=== PATIENT | female | born 1975 | race African-American/Black ===

== ENCOUNTER 2021-02-13 15:57 | Emergency (ER) | payer OTHER ==
[~2021-02-13] VITALS: Ht 162.6 cm; Wt 52.2 kg
[2021-02-13] MEDS ORDERED: LIDOCAINE 1% Multi-Dose 20 ML VIAL. INJ ONE (16:30)
[2021-02-13] MEDS ORDERED: CEPH500C PO (16:45)
[2021-02-13] MEDS ORDERED: IBUP-1007 PO (16:45)
--- NOTE | 2021-02-13 16:46 | PHYS DOC ---
General Adult EDM: Chief Complaint: VAGINAL PROBLEM HPI: HPI: Patient is a 45 year old female who presents with a vaginal abscess to the left labia. She states it got swollen and painful this morning. She states that she has had it there before and she had to have a drain but that was at [facility] 1 months ago. She denies fever, body aches, urinary symptoms. She has a history of hypertension. Rates her pain 6 out of 10. (ASH FLORES APRN) Review of Systems: Review of Systems: Constitutional: Denies fever or chills. [] Eyes: Denies change in visual acuity. [] HENT: Denies nasal congestion or sore throat. [] Respiratory: Denies cough or shortness of breath. [] Cardiovascular: Denies chest pain or edema. [] GI: Denies abdominal pain, nausea, vomiting, bloody stools or diarrhea. [] : Denies dysuria. + Vaginal pain [] Musculoskeletal: Denies back pain or joint pain. [] Integument: Denies rash. + Vaginal abscess [] Neurologic: Denies headache, focal weakness or sensory changes. [] Endocrine: Denies polyuria or polydipsia. [] Lymphatic: Denies swollen glands. [] Psychiatric: Denies depression or anxiety. [] (ASH FLORES APRN) Heart Score: C/O Chest Pain: No Risk Factors: Risk Factors: DM, Current or recent (<one month) smoker, HTN, HLP, family history of CAD, obesity. Risk Scores: Score 0 - 3: 2.5% MACE over next 6 weeks - Discharge Home Score 4 - 6: 20.3% MACE over next 6 weeks - Admit for Clinical Observation Score 7 - 10: 72.7% MACE over next 6 weeks - Early Invasive Strategies (ASH FLORES APRN) Current Medications: Current Medications Medications (Trade) Dose Ordered Sig/Angela Start Time Stop Time Status Last Admin Dose Admin Lidocaine HCl (Lidocaine 1% 20ml Vial) 20 ml 1X ONCE 02/13/21 16:30 02/13/21 16:31 UNV (ASH FLORES APRN) Physical Exam: PE: Constitutional: Well developed, well nourished, no acute distress, non-toxic appearance. [] HENT: Normocephalic, atraumatic, bilateral external ears normal, oropharynx moist, no oral exudates, nose normal. [] Eyes: PERRLA, EOMI, conjunctiva normal, no discharge. [] Neck: Normal range of motion, no tenderness, supple, no stridor. [] Cardiovascular:Heart rate regular rhythm, no murmur [] Lungs & Thorax: Bilateral breath sounds clear to auscultation [] Abdomen: Bowel sounds normal, soft, no tenderness, no masses, no pulsatile masses. [] Skin: Warm, dry, no erythema, no rash. Left labia vaginal abscess that is nondraining [] Back: No tenderness, no CVA tenderness. [] Extremities: No tenderness, no cyanosis, no clubbing, ROM intact, no edema. [] Neurologic: Alert and oriented X 3, normal motor function, normal sensory function, no focal deficits noted. [] Psychologic: Affect normal, judgement normal, mood normal. [] (ASH FLORES APRN) EKG: EKG: [] (ASH FLORES APRN) Radiology/Procedures: Radiology/Procedures: [] (ASH FLORES APRN) Course & Med Decision Making: Course & Med Decision Making Pertinent Labs and Imaging studies reviewed. (See chart for details) See HPI. Alert and oriented x4. Ambulatory with a steady gait. Speaks in full clear sentences. Abscess is approximately 1 cm wide and 2 inches long. Tenderness is fluctuant. No drainage. No associated cellulitis. Left labia 1+ swollen. I&D Location: Left labia Anesthesia: 1% lidocaine Scalpel size: #11 Skin: Abscess without cellulitis Drainage: moderate amount of purulent fluid Packing: None Patient tolerated the procedure well with no complications. The area was prepped and draped in usual sterile fashion. Area was cleaned with chloehexidine prior to procedure. Return for signs and symptoms of infection education given. Patient to return in 48 hours for wound recheck. [] (ASH FLORES APRN) Dragon Disclaimer: Dragon Disclaimer: This electronic medical record was generated, in whole or in part, using a voice recognition dictation system. (ASH FLORES APRN) Departure Departure Impression: Primary Impression: Abscess Disposition: 01 HOME / SELF CARE / HOMELESS Condition: STABLE Referrals: MICHELLE LAMBERT Jr, MD Patient Instructions: Abscess, Abscess, Care After, Sitz Bath Additional Instructions: Follow-up with primary care provider or wood machinist apprentice. Use a sitz bath. Use ibuprofen for your pain. Take antibiotic as prescribed until it is gone and with food. Scripts Cephalexin (CEPHALEXIN) 500 Mg Capsule 1 CAP PO QID, #40 CAP Prov: ASH FLORES APRN 02/13/21 Ibuprofen (IBUPROFEN) 600 Mg Tablet 600 MG PO PRN Q6HRS PRN for INFLAMMATION, #20 TAB Prov: ASH FLORES APRN 02/13/21 Attending Signature Attending Signature I have participated in the care of this patient and I have reviewed and agree with all pertinent clinical information above including history, exam, and recommendations. (ADITYA CLEMONS DO) ASH FLORES APRN February 13, 2021 16:46 ADITYA CLEMONS DO February 13, 2021 17:36
[2021-02-13] MEDS ORDERED: LIDOCAINE 1% Multi-Dose 20 ML VIAL. ONE (16:49)
[2021-02-13 17:13] VITALS: BP 177/103
== END 2021-02-13 17:27 | disposition home or self-care (01) ==
LOC: ER 15:57
DX: N76.4 Abscess of vulva (principal)
CPT/HCPCS: 56405; 99284; J3490